=== PATIENT | female | born 1980 | race Hispanic/Latino ===

== ENCOUNTER → 2023-03-23 | Outpatient (CLI) | payer OTHER | END | disposition home or self-care (01) | LOC: RAH 12:54 | PROVIDERS: ATTEND Obstetrics & Gynecology | DX: Z12.31 Encounter for screening mammogram for malignant neoplasm of breast (principal) | CPT/HCPCS: 77067 ==

== ENCOUNTER → 2024-05-30 | Outpatient (CLI) | payer OTHER ==
[2024-05-30 10:57] LABS: HIV 1&2 ANTIBODY Non-Reactive (Negative); HIV-1 p24 Antigen Non-Reactive (Negative)
[2024-06-01 12:59] LABS: RAPID PLASMA REAGIN NONREACTIVE (NONREACTIVE)
== END | disposition home or self-care (01) ==
LOC: LAB 09:07
PROVIDERS: ATTEND Obstetrics & Gynecology
DX: Z11.3 Encounter for screening for infections with a predominantly sexual mode of transmission (principal); B37.32 Chronic candidiasis of vulva and vagina
CPT/HCPCS: 36415; 83036; 86592; 86701; 86803; 87340; 87390

== ENCOUNTER → 2024-06-14 | Outpatient (CLI) | payer OTHER | END | disposition home or self-care (01) | LOC: RAH 10:00 | PROVIDERS: ATTEND Obstetrics & Gynecology | DX: Z12.31 Encounter for screening mammogram for malignant neoplasm of breast (principal); R92.333 Mammographic heterogeneous density, bilateral breasts; Z98.82 Breast implant status | CPT/HCPCS: 77067 ==

== ENCOUNTER 2024-09-25 11:03 | Emergency (ER) | payer OTHER ==
[~2024-09-25] VITALS: Ht 152.4 cm; Wt 52.2 kg
[2024-09-25 11:27] LABS: RAPID GROUP A STREP negative (NEGATIVE)
[2024-09-25 11:38] LABS: COVID19 (SARS ANTIGEN RAPID) PRESUMPTIVE NEGATIVE (NEGATIVE); INFLUENZA TYPE B Negative For Type B (NEGATIVE)
[2024-09-25 11:42] LABS: INFLUENZA TYPE A Positive For Type A (NEGATIVE)
--- NOTE | 2024-09-25 11:53 | ERN ---
ED Note History of Present Illness Stated Complaint: FLU SYM Chief Complaint: Flu Symptoms Time Seen by MD: 11:09 Dictation: 43-year-old female presents to the ED for evaluation of cough onset 3 days ago. Patient reports nasal congestion, throat pain and chest pain due to cough, but denies any other associated symptoms at this time. Patient mentioned her kids are positive for flu and strep. Allergies: Coded Allergies: No Known Drug Allergies (Unverified Allergy, Unknown, 09/25/24) Past Medical History Past Medical History: Anxiety Surgical History: None Review of System Dictation Constitutional: Negative for fever,chills, and weight loss Eyes: Negative for injury, pain,redness, and discharge ENT: Positive for nasal congestion, throat pain Negative for injury or swelling Cardiovascular: Negative for chest pain, palpitations, and edema Respiratory: Positive for cough Negative for shortness of breath, and wheezing, Abdomen/GI: Negative for abdominal pain, nausea, vomiting, diarrhea, and constipation Back: Negative for injury and pain : Negative for injury, bleeding and discharge MS/Extremity: Negative for injury and deformity Skin: Negative for rash, and discoloration Neuro: Negative for headache, weakness, numbness, tingling, and seizure Psych: Negative for suicide ideation, homicidal ideation, and hallucinations Initial Vital Sign VS Vital Signs Date Time Temp Pulse Resp B/P (MAP) Pulse Ox O2 Delivery O2 Flow Rate FiO2 09/25/24 11:06 99.3 86 18 113/75 98 Physical Exam Dictation General: awake, alert, NAD Head/Face: Normocephalic, atraumatic Eyes: PERRL, EOMI, vision at baseline ENT: oral cavity clear, TMs clear, pharyngeal erythema Neck: Trachea midline, supple, no nuchal rigidity Cardiovascular: RRR, normal S1/S2, No MRGs, no JVD Respiratory: CTAB, no respiratory distress, No rales or wheezes Abdomen: Soft, non-tender, non-distended, normal bowel sounds, no guarding or rebound. Skin: Warm, dry, normal turgor, no rash MS/Extremity: Pulses equal, no cyanosis, neurovascular intact, FROM Neuro: COAx4, GCS 15, strength 5/5, CN 2-12 intact, normal cerebellar exam, normal gait, Psych: Normal behavior, mood, and affect normal Results (Laboratory/Radiology) Laboratory/Radiology Laboratory Tests Test 09/25/24 11:11 Influenza Type A Antigen Positive For Type A Influenza Type B Antigen Negative For Type B SARS-CoV-2 Antigen (Rapid) PRESUMPTIVE NEGATIVE Group A Streptococcus Rapid negative (NEGATIVE) Labs Reviewed?: Yes ED Course ED Course Orders Procedure Category Date Status Time Influenza Type A & B, LAB 09/25/24 Complete Rapid 11:13 Covid19 (Sars Antigen LAB 09/25/24 Complete Rapid) 11:13 Rapid (Group A Strep) LAB 09/25/24 Complete 11:13 Ceftriaxone 1g Vial PHA 09/25/24 Complete (Rocephine 1g Inj) 12:00 Current Medications Medications (Trade) Dose Ordered Sig/Davide Route PRN Reason Start Time Stop Time Status Last Admin Dose Admin Ceftriaxone Sodium (ROCEphine 1G INJ) 1 gm ONCE ONCE IM 09/25/24 12:00 09/25/24 12:01 DC 09/25/24 12:05 Vital Signs Date Time Temp Pulse Resp B/P (MAP) Pulse Ox O2 Delivery O2 Flow Rate FiO2 09/25/24 11:06 99.3 86 18 113/75 98 Medical Decision Making MDM MDM: Differential diagnosis: Pharyngitis, influenza, viral syndrome, strep Previous outside records reviewed: Old ER visits. Need for hospitalization: Patient does not meet criteria for hospitalization. Need for emergency major/minor surgery: No Patient's prior external medical records from other ER visits were reviewed by me as indicated. Prior testing and results from previous visits were reviewed. Prior tests were taken into account with medical decision making and resource utilization, independent historian/historians were used to obtain complete medical history. I independently interpreted the test that were performed, results were reviewed by me and considered findings on radiology if ordered. Medical management and examination interpretation discussions were had by me with other qualified healthcare professionals as indicated for the patient's care. DX & DISP Disposition: Discharge Departure Impression: Primary Impression: Influenza A Condition: Stable Scripts Oseltamivir Phosphate (Oseltamivir Phosphate) 75 Mg Capsule 1 CAP PO BID for 5 Days, #10 CAP 0 Refills Prov: NALDO FRANKEL MD 09/25/24 Referrals: GRECIA AYALA MD (PCP) I have reviewed, & agreed with my scribe's, documentation. (Entered by Karol Tatum, acting as a scribe for Dr. Frankel) I personally scribed for NALDO FRANKEL MD ([email or web address]) on 09/25/24 at 11:53. Electronically submitted by Karol Tatum ([email or web address]). NALDO FRANKEL MD Sep 25, 2024 11:53
[2024-09-25] MEDS: cefTRIAXone 1G VIAL IM ONE (12:05)
[2024-09-25 12:09] VITALS: BP 113/75; PULSE 86; RESP 18; TEMP 99; O2SAT 98
[2024-09-25] MEDS ORDERED: OSEL75CA17 PO (12:10)
--- NOTE | 2024-09-25 12:12 | NUR ---
PT STABLE AAOX4, NO DISTRESS VITALS WNL. NO C/O PAIN NOW. PT GIVEN INSTRUCTIONS FOR HOME, WILL START NEW MEDICATIONS TODAY DIRECTED, NO IV ON THIS VISIT. PT DROVE HERSELF HOME.
== END 2024-09-25 12:23 | disposition home or self-care (01) ==
LOC: EDH 11:03
DX: J10.1 Influenza due to other identified influenza virus with other respiratory manifestations (principal); Z20.822 Contact with and (suspected) exposure to COVID-19; F41.9 Anxiety disorder, unspecified
CPT/HCPCS: 99283; 87426; 87880; 87804 ×2; 96372; J0696

== ENCOUNTER → 2025-03-31 | Outpatient (CLI) | payer OTHER ==
[~2025-03-31] MED LIST: OSEL75CA17 PO
[2025-03-31 10:20] LABS: EOSINOPHILS # (AUTO) 0.08 K/uL (0.00-0.70); EOSINOPHILS % (AUTO) 1.5 % (0.0-8.0); HEMATOCRIT 40.5 % (36-48); IMMATURE GRANULOCYTE ABSOLUTE 0.01 K/uL (0-1); LYMPHOCYTES # (AUTO) 1.8 K/uL (1.0-4.8); LYMPHOCYTES % (AUTO) 33.3 % (21.0-51.0); MEAN CORPUSCULAR HEMOGLOBIN 31.3 pg (27.0-33.0); MEAN CORPUSCULAR HGB CONC 34.1 g/dL (32.0-36.0); MEAN CORPUSCULAR VOLUME 91.8 fL (79-99); MONOCYTES # (AUTO) 0.4 K/uL (0.1-1.0); MONOCYTES % (AUTO) 8.3 % (3.0-13.0); NEUTROPHILS % (AUTO) 56.7 % (40.0-77.0); PLATELET COUNT (AUTO) 288 K/uL (130-400); RED BLOOD CELL COUNT(AUTO) 4.41 MIL/uL (4.00-5.50); WHITE BLOOD COUNT (AUTO) 5.3 K/uL (4.8-10.8)
[2025-03-31 10:38] LABS: BILIRUBIN,TOTAL 0.6 mg/dL (0.2-1.0); CREATININE 0.6 mg/dL (0.5-1.0); THYROID STIMULATING HORMONE 1.54 uIU/mL (0.36-3.74); TOTAL PROTEIN, SERUM 7.7 g/dL (6.0-8.3)
[2025-03-31 10:40] LABS: HEMOGLOBIN A1C 5.1 % (4.0-6.0)
== END | disposition home or self-care (01) ==
LOC: LAB 08:00
DX: F41.9 Anxiety disorder, unspecified (principal); Z00.00 Encounter for general adult medical examination without abnormal findings
CPT/HCPCS: 36415; 80053; 80061; 83036; 84439; 84443; 85025